=== PATIENT | male | born 1945 ===

== ENCOUNTER 2020-07-09 22:30 | Inpatient (IN) ==
[2020-07-09 23:15] LABS: Basophils # 0.1 K/mcL (0.0-0.2); Basophils % 0.8 %; Eosinophils # 0.2 K/mcL (0.0-0.6); Eosinophils % 2.7 %; Hematocrit 41.7 % (37.5-50.1); Hemoglobin 13.7 g/dL (12.9-16.9); Immature Granulocytes % 0.5 % (0-4); Lymphocytes # 1.1 K/mcL (0.6-4.6); Lymphocytes % 13.2 %; Mean Corpuscular HGB Conc 32.9 g/dL (31.6-35.5); Mean Corpuscular Hemoglobin 28.8 pg (28.0-33.3); Mean Corpuscular Volume 87.8 fL (83.0-100.0); Mean Platelet Volume 10.3 fL (9.4-12.4); Monocytes # 0.6 K/mcL (0.0-1.3); Monocytes % 7.3 %; Neutrophils # 6.5 K/mcL (1.6-8.9); Platelet Count 268 K/mcL (140-400); Red Blood Count 4.75 M/mcL (4.19-5.50); Red Cell Distribution Width 13.1 % (11.5-14.5); Segmented Neutrophils % 75.5 %; White Blood Count 8.7 K/mcL (4.3-11.1)
[2020-07-09 23:37] LABS: BUN/Creatinine Ratio 19 (6-26); Blood Urea Nitrogen 15 mg/dL (8-23); Calcium 9.5 mg/dL (8.6-10.3); Carbon Dioxide 23 mEq/L (23-29); Chloride 101 mEq/L (98-107); Glucose 262 mg/dL (70-105); Osmolality,Calculated 294 (280-300); Potassium 3.9 mEq/L (3.5-5.1); Sodium 137 mEq/L (136-145); eGFR For African Americans > 60 (> 60); eGFR For Non-African Americans > 60 (> 60)
[2020-07-09 23:40] LABS: Troponin I 0.05 ng/mL (< 0.04)
[2020-07-09] MEDS ORDERED: Nitroglycerin 0.4 MG TAB.SUBL SL PRN (23:41)
[2020-07-10] MEDS ORDERED: Isovue-370 500 ML BOTTLE IVP ONE (00:57)
[2020-07-10] MEDS ORDERED: Naloxone 0.4 MG/ML INJ IVP PRN (03:07)
[2020-07-10] MEDS ORDERED: Gadolinium Contrast Agent (WT Based) IV PRN (03:35)
[2020-07-10] MEDS ORDERED: *HR* Dextrose 50 % in Water (Vial) 50 ML VIAL IVP PRN (04:00)
[2020-07-10] MEDS ORDERED: Dextrose Gel 15 GM/37.5 ML TUBE PO PRN ×2 (04:00)
[2020-07-10] MEDS ORDERED: D5% in Water 1,000 ML IVC PRN (04:00)
[2020-07-10 05:25] LABS: Basophils # 0.1 K/mcL (0.0-0.2); Basophils % 0.7 %; Eosinophils # 0.2 K/mcL (0.0-0.6); Hematocrit 41.6 % (37.5-50.1); Hemoglobin 13.8 g/dL (12.9-16.9); Immature Granulocytes % 0.4 % (0-4); Lymphocytes # 1.6 K/mcL (0.6-4.6); Lymphocytes % 21.3 %; Mean Corpuscular HGB Conc 33.2 g/dL (31.6-35.5); Mean Corpuscular Hemoglobin 28.9 pg (28.0-33.3); Mean Platelet Volume 10.3 fL (9.4-12.4); Monocytes # 0.6 K/mcL (0.0-1.3); Monocytes % 8.7 %; Neutrophils # 4.8 K/mcL (1.6-8.9); Platelet Count 262 K/mcL (140-400); Red Blood Count 4.78 M/mcL (4.19-5.50); Segmented Neutrophils % 65.9 %; White Blood Count 7.3 K/mcL (4.3-11.1)
[2020-07-10 05:41] LABS: BUN/Creatinine Ratio 24 (6-26); Blood Urea Nitrogen 16 mg/dL (8-23); Calcium 9.8 mg/dL (8.6-10.3); Carbon Dioxide 25 mEq/L (23-29); Chloride 102 mEq/L (98-107); Glucose 219 mg/dL (70-105); Osmolality,Calculated 292 (280-300); Phosphorous 2.8 mg/dL (2.7-4.5); Potassium 3.6 mEq/L (3.5-5.1); Sodium 137 mEq/L (136-145); eGFR For African Americans > 60 (> 60); eGFR For Non-African Americans > 60 (> 60)
[2020-07-10 05:42] LABS: Estimated Average Glucose 226 mg/dl
[2020-07-10] MEDS ORDERED: *HR* Heparin 5,000 UNIT/ML VIAL IVP ONE (05:50)
[2020-07-10] MEDS ORDERED: *HR* Heparin 5,000 UNIT/ML VIAL IVP PRN ×2 (05:50)
[2020-07-10] MEDS ORDERED: Insulin LISPRO 300 UNITS/3 ML VIAL SQ SCH (06:00)
[2020-07-10] MEDS ORDERED: *HR* Heparin 5,000 UNIT/ML VIAL SQ SCH (06:00)
[2020-07-10 06:31] LABS: INR 1.3; Prothrombin Time 14.5 Seconds (9.4-12.1)
[2020-07-10] MEDS: Heparin 25,000UNIT/250ML 1/2NS 25,000 UNIT/250 ML IV.SOLN IVC SCH (06:35)
[2020-07-10 06:39] LABS: Heparin anti-factor XA UFH 1.61 IU/mL (0.30-0.70)
[2020-07-10] MEDS ORDERED: Perflutren Lipid Microsphere 1.3 ML in 0.9 % Sodium Chloride 8.7 ML IVP PRN (08:25)
[2020-07-10] MEDS: carvediloL 6.25 MG TABLET PO SCH ×2 (08:56→16:41)
[2020-07-10] MEDS: Aspirin 81 MG TAB.CHEW PO SCH (08:56)
[2020-07-10] MEDS ORDERED: carvediloL 25 MG TABLET PO SCH (09:00)
[2020-07-10] MEDS: Insulin LISPRO 300 UNITS/3 ML VIAL SQ SCH ×3 (11:59→22:07)
[2020-07-10] MEDS ORDERED: *HR* LORazepam 0.5 MG TABLET PO PRN (14:40)
[2020-07-10] MEDS ORDERED: Gabapentin 300 MG CAPSULE PO PRN (14:40)
[2020-07-10] MEDS ORDERED: Acetaminophen 325 MG TABLET PO PRN (14:40)
[2020-07-11 02:30] LABS: Basophils # 0.1 K/mcL (0.0-0.2); Basophils % 0.7 %; Eosinophils # 0.3 K/mcL (0.0-0.6); Eosinophils % 3.2 %; Hematocrit 42.1 % (37.5-50.1); Immature Granulocytes % 0.5 % (0-4); Lymphocytes # 1.8 K/mcL (0.6-4.6); Lymphocytes % 22.9 %; Mean Corpuscular HGB Conc 33.3 g/dL (31.6-35.5); Mean Corpuscular Volume 87.2 fL (83.0-100.0); Mean Platelet Volume 10.4 fL (9.4-12.4); Monocytes # 0.5 K/mcL (0.0-1.3); Monocytes % 6.2 %; Neutrophils # 5.4 K/mcL (1.6-8.9); Platelet Count 250 K/mcL (140-400); Red Blood Count 4.83 M/mcL (4.19-5.50); Red Cell Distribution Width 13.1 % (11.5-14.5); Segmented Neutrophils % 66.5 %; White Blood Count 8.1 K/mcL (4.3-11.1)
[2020-07-11 02:51] LABS: BUN/Creatinine Ratio 22 (6-26); Blood Urea Nitrogen 15 mg/dL (8-23); Calcium 9.5 mg/dL (8.6-10.3); Carbon Dioxide 23 mEq/L (23-29); Chloride 102 mEq/L (98-107); Glucose 206 mg/dL (70-105); Magnesium 1.9 mg/dL (1.6-2.6); Osmolality,Calculated 289 (280-300); Potassium 3.8 mEq/L (3.5-5.1); Sodium 136 mEq/L (136-145); eGFR For African Americans > 60 (> 60); eGFR For Non-African Americans > 60 (> 60)
[2020-07-11 03:16] LABS: Troponin I 0.95 ng/mL (< 0.04)
[2020-07-11] MEDS: Heparin 25,000UNIT/250ML 1/2NS 25,000 UNIT/250 ML IV.SOLN IVC SCH (03:52)
[2020-07-11] MEDS: Insulin LISPRO 300 UNITS/3 ML VIAL SQ SCH ×4 (08:10→19:44)
[2020-07-11] MEDS: carvediloL 6.25 MG TABLET PO SCH ×2 (08:11→17:08)
[2020-07-11] MEDS: Aspirin 81 MG TAB.CHEW PO SCH (08:11)
[2020-07-11] MEDS: lisinopriL 5 MG TABLET PO SCH (08:11)
[2020-07-11] MEDS ORDERED: 0.9 % Sodium Chloride 2,000 ML ONE (09:51)
[2020-07-11] MEDS ORDERED: Heparin 1,000 UNITS/500 mL 500 ML ONE (09:52)
[2020-07-11] MEDS ORDERED: *HR* Heparin 10,000 UNIT/10 ML VIAL ONE (09:52)
[2020-07-11] MEDS ORDERED: ISOVUE-370 200 ML INFUS..BTL ONE (09:52)
[2020-07-11] MEDS ORDERED: Nitroglycerin 1,000 MCG/10 ML VIAL IV ONE (09:52)
[2020-07-11] MEDS ORDERED: *HR* Midazolam HCl 2 MG/2 ML VIAL ONE (09:59)
[2020-07-11] MEDS ORDERED: *HR* FentaNYL (PF) 100 MCG/2 ML VIAL ONE (09:59)
[2020-07-12 03:00] LABS: BUN/Creatinine Ratio 20 (6-26); Blood Urea Nitrogen 15 mg/dL (8-23); Calcium 9.5 mg/dL (8.6-10.3); Carbon Dioxide 26 mEq/L (23-29); Chloride 101 mEq/L (98-107); Glucose 188 mg/dL (70-105); Osmolality,Calculated 290 (280-300); Potassium 3.8 mEq/L (3.5-5.1); Sodium 137 mEq/L (136-145); eGFR For African Americans > 60 (> 60); eGFR For Non-African Americans > 60 (> 60)
[2020-07-12] MEDS: Heparin 25,000UNIT/250ML 1/2NS 25,000 UNIT/250 ML IV.SOLN IVC SCH (04:58)
[2020-07-12 07:34] VITALS: BP 121/84
[2020-07-12] MEDS: Insulin LISPRO 300 UNITS/3 ML VIAL SQ SCH (08:07)
[2020-07-12] MEDS: lisinopriL 5 MG TABLET PO SCH (08:10)
[2020-07-12] MEDS: carvediloL 6.25 MG TABLET PO SCH (08:10)
[2020-07-12] MEDS: Aspirin 81 MG TAB.CHEW PO SCH (08:10)
== END 2020-07-12 10:35 | disposition home or self-care (01) | DRG 250 ==
LOC: 2ANU 22:30 → EMEROOARM 22:30 → SUATTDRO 07-10 02:52 → 2ANU 07-10 03:10
PROVIDERS: ADMIT Family Medicine; ATTEND Internal Medicine